=== PATIENT | male | born 1970 | race Caucasian/White ===

== ENCOUNTER 2017-03-04 19:31 | Emergency (ER) | payer OTHER ==
[~2017-03-04 19:31] MED LIST: BACTROBAN NASAL1 G1; COREG 3.125M3.125 MG PO; LASIX TAB 20 MG20 MG PO; ZESTRIL2.5 MG PO
[2017-03-04 20:26] LABS: HEMOGLOBIN 13.3 gm/dl (14.0-17.5); RED BLOOD COUNT 4.35 M/UL (4.20-5.50); WHITE BLOOD COUNT 9.4 K/UL (4.5-11.0)
[2017-03-04 20:33] LABS: BUN/CREATININE RATIO 16 (0-10)
== END 2017-03-05 00:42 | disposition short-term general hospital (02) ==
LOC: ER1 19:31
PROVIDERS: Emergency Medicine
DX: T42.4X1A Poisoning by benzodiazepines, accidental (unintentional), initial encounter (principal); T43.621A Poisoning by amphetamines, accidental (unintentional), initial encounter; R41.82 Altered mental status, unspecified; R45.851 Suicidal ideations; I10 Essential (primary) hypertension; Z79.899 Other long term (current) drug therapy
CPT/HCPCS: 36415; 70450; 71010; 80053; 80307; 81001; 82550; 84484; 85025; 93005; 96374; 96375; 99285; G0480; J2310; J2550

== ENCOUNTER 2021-06-06 10:52 | Emergency (ER) | payer OTHER ==
[~2021-06-06 10:52] MED LIST changes: +BUMEX 1MG TABLET1 MG PO; +CEFDINIR300 MG PO; +COLACE 100MG C100 MG PO; +CYCLOBENZAPRINE5 MG PO; +ENTRESTO 24 MG1 EACH PO; +FLAGYL500 MG PO; +GABAPENTIN400 MG PO; +GUAIFENESI100 MG/5 M PO; +HYDROCODON-ACE1 EAC6 PO; +IBUPROFEN800 MG PO; +IPRAT-ALBUT 0.5-3 ML NEB; +K-DUR TAB 20 M20 MEQ PO; +K-TAB ER10 MEQ PO; +LASIX40 MG PO; +LEVAQUIN500 MG PO; +LOPRESSOR 25 MG25 MG PO; +METOLAZONE2.5 MG PO; +MOBIC15 MG PO; +PREDNISONE20 MG PO; +PROVENTIL HFA6.7 GM INH; +SYMBICORT 160-1 INHA INH; +THEO-24100 MG PO; +VENTOLIN HFA 66.7 GM INH
[2021-06-06 11:54] LABS: HEMOGLOBIN 13.7 gm/dl (14.0-17.5); RED BLOOD COUNT 4.35 M/UL (4.20-5.50); WHITE BLOOD COUNT 9.5 K/UL (4.5-11.0)
[2021-06-06 12:15] LABS: BUN/CREATININE RATIO 14 (0-10)
== END 2021-06-06 14:17 | disposition home or self-care (01) ==
LOC: ER1 10:52
PROVIDERS: Physician Assistant
DX: R00.2 Palpitations (principal)
CPT/HCPCS: 71045; 80053; 82550; 82553; 83874; 84439; 84443; 84484; 85025; 93005; 99285